=== PATIENT | male | born 1975 | race Caucasian/White ===

== ENCOUNTER 2018-10-01 00:29 | Emergency (ER) | payer SELFPAY ==
[~2018-10-01] VITALS: Ht 177.8 cm; Wt 140.0 kg
--- NOTE | 2018-10-01 00:41 | NUR ---
PT BIB [facility] C/O CPx3 DAYS AFTER WALKING "6 MILES". STATES CP RADIATES TO L ARM AND NECK FEELING "SHARP" W/ ACCOMPANYING SOB. STATES CP WORSE TONIGHT AND FIANCE STATES "PT SEEMS MORE TIRED AND OUT OF IT TODAY." ASPIRIN ADMIN TONIGHT WELL PT ADMITS TO METH USE AT 2100 THIS PM. ALL MONITORING APPLIED. VSS. CALL LIGHT WITHIN REACH.
--- NOTE | 2018-10-01 00:42 | NUR ---
PT REFUSING TORADOL PAIN MEDICATION. AWARE.
[2018-10-01] MEDS ORDERED: KETOROLAC 30 MG/1 ML IVPush ONE (01:00)
[2018-10-01 01:25] LABS: BASOPHILS # (AUTO) 0.02 x10^3/uL (0-0.1); BASOPHILS % (AUTO) 0 % (0-1); EOSINOPHILS # (AUTO) 0.04 x10^3/uL (0-0.4); EOSINOPHILS % (AUTO) 0 % (1-7); LYMPHOCYTES # (AUTO) 1.57 x10^3/uL (1-3.4); LYMPHOCYTES % (AUTO) 10 % (22-44); MD NO; MEAN CORPUSCULAR HEMOGLOBIN 31.5 pg (27.5-34.5); MEAN CORPUSCULAR HGB CONC 34.4 g/dL (33.2-36.2); MEAN CORPUSCULAR VOLUME 91.6 fL (81-97); MEAN PLATELET VOLUME 10.9 fL (7.4-10.4); MONOCYTES # (AUTO) 0.97 x10^3/uL (0.2-0.8); MONOCYTES % (AUTO) 6 % (2-9); NEUTROPHILS # (AUTO) 13.47 x10^3/uL (1.8-6.8); NEUTROPHILS % (AUTO) 84 % (42-75); PLATELET COUNT 176 x10^3/uL (130-400); RED BLOOD COUNT 4.89 x10^6/uL (4.38-5.82)
[2018-10-01 01:33] LABS: ALANINE AMINOTRANSFERASE 37 U/L (12-78); ALBUMIN 3.5 g/dL (3.4-5.0); ANION GAP 7 mmol/L (5-15); CALCIUM 8.6 mg/dL (8.5-10.1); CHLORIDE 110 mmol/L (98-107); CREATININE 0.92 mg/dL (0.7-1.3)
[2018-10-01 01:34] LABS: PROTHROMBIN TIME 10.6 Seconds (9.6-11.5)
[2018-10-01 01:38] LABS: ALKALINE PHOSPHATASE 83 U/L (45-117); BILIRUBIN,TOTAL 0.3 mg/dL (0.2-1.0); TOTAL PROTEIN 6.9 g/dL (6.4-8.2); TROPONIN I < 0.015 ng/mL (0.000-0.045)
[2018-10-01 01:55] VITALS: BP 151/97
--- NOTE | 2018-10-01 01:55 | NUR ---
NO IMMEDIATE NEEDS FROM PT. VSS. CALL LIGHT WITHIN REACH. PT TBDC. AWAITING D/C PAPERWORK.
== END 2018-10-01 02:13 | disposition home or self-care (01) ==
LOC: ED 01:03
DX: R07.9 Chest pain, unspecified (principal); F15.10 Other stimulant abuse, uncomplicated; R06.00 Dyspnea, unspecified
CPT/HCPCS: 36415; 71045; 80053; 83690; 84484; 85025; 85610; 85730; 93005; 99284